=== PATIENT | male | born 1995 | race African-American/Black ===

== ENCOUNTER 2016-09-11 10:06 | Emergency (ER) | payer MEDICAID ==
[~2016-09-11] VITALS: Ht 177.8 cm; Wt 64.0 kg
[2016-09-11 10:08] VITALS: BP 113/42
[2016-09-11] MEDS ORDERED: PREDNISONE 20MG TABLET PO STA (12:18)
[2016-09-11] MEDS ORDERED: ALBUTEROL (0.083%) 2.5MG/3ML NEB HHN STA (12:18)
[2016-09-11] MEDS ORDERED: IPRATROPIUM BROMIDE (0.02%) 0.5MG/2.5ML NEB HHN STA (12:18)
== END 2016-09-11 14:10 | disposition home or self-care (01) ==
LOC: ER 12:32
DX: J45.909 Unspecified asthma, uncomplicated (principal); F17.200 Nicotine dependence, unspecified, uncomplicated
CPT/HCPCS: 71010; 94640; 99283; J7512; J7611; Z7610; A4315